=== PATIENT | male | born 1980 | race Caucasian/White ===

== ENCOUNTER 2018-02-20 18:23 | Inpatient (IN) | payer MEDICAID ==
[~2018-02-20] VITALS: Ht 170.2 cm; Wt 54.4 kg
--- NOTE | 2018-02-20 18:46 | NUR ---
PT IS IN ROOM #2A. DR PULLIAM EVALUATED THE PT.
[2018-02-20 18:47] LABS: BASOPHILS % (AUTO) 0.5 % (0.0-2.0); EOSINOPHILS # (AUTO) 0.5 K/uL (0.0-0.7); EOSINOPHILS % (AUTO) 5.5 % (0.0-7.0); HEMOGLOBIN 13.3 g/dL (12.5-16.3); LYMPHOCYTES # (AUTO) 2.4 K/uL (20.0-40.0); LYMPHOCYTES % (AUTO) 27.2 % (20.5-51.5); MEAN CORPUSCULAR HGB CONC 33 g/dL (32.5-36.3); MONOCYTES # (AUTO) 0.8 K/uL (2.0-10.0); MONOCYTES % (AUTO) 9.3 % (0.0-11.0); NEUTROPHILS # (AUTO) 5.2 K/uL (1.8-8.9); NEUTROPHILS % (AUTO) 57.5 % (38.5-71.5); PLATELET COUNT (AUTO) 247 K/uL (152-348); WHITE BLOOD COUNT (AUTO) 8.9 K/uL (3.6-10.2)
[2018-02-20 19:00] LABS: ALANINE AMINOTRANSFERASE 31 U/L (16-63); ALKALINE PHOSPHATASE 105 U/L (50-136); ASPARTATE AMINOTRANSFERASE 23 U/L (15-37); BILIRUBIN,DIRECT 0.1 mg/dL (0.0-0.2); BILIRUBIN,TOTAL 0.4 mg/dL (0.2-1.0); CARBON DIOXIDE 36 mmol/L (21-32); CHLORIDE 96 mmol/L (98-107); CREATININE 0.8 mg/dL (0.6-1.3); POTASSIUM 4.4 mmol/L (3.5-5.1); TOTAL PROTEIN, SERUM 7.6 g/dL (6.4-8.2); UREA NITROGEN, BLOOD 7 mg/dL (7-18)
[2018-02-20 19:09] LABS: ACETAMINOPHEN < 2.0 ug/mL (10-30); GLUCOSE 409 mg/dL (74-106)
[2018-02-20 19:10] LABS: ETHANOL < 3 MG/DL (0-0)
--- NOTE | 2018-02-20 19:13 | NUR ---
REPORT GIVEN TO [employer]RARIAN RN.
[2018-02-20 19:25] LABS: THYROID STIMULATING HORMONE 1.081 mIU/mL (0.358-3.740)
[2018-02-20] MEDS ORDERED: IV NORMAL SALINE 1000 ML BAG IV ONE (19:45)
--- NOTE | 2018-02-20 20:18 | NUR ---
pt deficated in his pants. Pt cleaned, linen changed. Pt able to give urine sample, taken to lab. Pt stated that he used heroine and "crystal" today, informed.
--- NOTE | 2018-02-20 20:20 | NUR ---
Pt difficult to arouse but A&Ox2. Not very cooperative.
[2018-02-20 20:24] LABS: *BILIRUBIN,URIN NEGATIVE (NEGATIVE); *BLOOD, URINE NEGATIVE (NEGATIVE); *COLOR,URINE YELLOW (YELLOW); *KETONES,URINE NEGATIVE (NEGATIVE); *PROTEIN,URINE NEGATIVE (NEGATIVE); *UROBILINOGEN,URINE 0.2 E.U./dl (NORMAL); LEUKOCYTE ESTERASE ,URINE NEGATIVE (NEGATIVE); NITRITE, URINE NEGATIVE (NEGATIVE); PH,URINE 8.5 (5.0-8.0)
[2018-02-20 20:35] LABS: *AMPHETAMINE, URINE POSITIVE (NEGATIVE); *BARBITURATE, URINE NEGATIVE (NEGATIVE); *CANNABINOID, URINE POSITIVE (NEGATIVE); *COCCAINE, URINE NEGATIVE (NEGATIVE); *OPIATE, URINE POSITIVE (NEGATIVE); *PHENCYCLIDINE SCREEN,URINE NEGATIVE (NEGATIVE)
[2018-02-20 20:45] LABS: *CLARITY,URINE HAZY (CLEAR); UGLUCOSE 2+ (NEGATIVE)
[2018-02-20 20:46] LABS: URINE AMORPHOUS PHOSPHATES MODERATE /HPF; WBC,URINE 0-3 /HPF (0-3)
[2018-02-20 20:47] LABS: MUCUS,URINE FEW /LPF (0-FEW); SPERM,URINE FEW /HPF (NONE SEEN)
--- NOTE | 2018-02-20 22:41 | NUR ---
Pt tore off his diaper and deficated on himself again. Cleaned pt again and changed linen.
[2018-02-21] MEDS ORDERED: ONDANSETRON IV *ER 4 MG/2 ML VIAL IV ONE (00:15)
[2018-02-21] MEDS ORDERED: ONDANSETRON 4 MG/2 ML VIAL ONE ×2 (00:28→03:27)
--- NOTE | 2018-02-21 00:29 | NUR ---
pt vomited on floor, MD notified. Accucheck = 336, MD informed.
[2018-02-21] MEDS ORDERED: IV NORMAL SALINE 1000 ML BAG IV ONE (00:30)
[2018-02-21] MEDS ORDERED: METOCLOPRAMIDE HCL 10 MG/2 ML VIAL IV ONE (01:15)
[2018-02-21] MEDS ORDERED: METOCLOPRAMIDE HCL 10 MG/2 ML VIAL ONE (01:19)
--- NOTE | 2018-02-21 01:23 | NUR ---
Pt vomited yellow liquid, MD notified. Admin Reglan per .
--- NOTE | 2018-02-21 03:20 | NUR ---
[facility] WAITING FOR BRIAN JAQUEZ VP OF [employer]PERI[employer]ATEGY TO CALL BACK.
[2018-02-21] MEDS: ONDANSETRON IV *ER 4 MG/2 ML VIAL IV ONE ×2 (03:25→03:26)
--- NOTE | 2018-02-21 03:31 | NUR ---
BRIAN JAQUEZ COLLISION ESTIMATOR SPEAKING WITH DR PULLIAM
--- NOTE | 2018-02-21 03:44 | NUR ---
Called report to [facility].
[2018-02-21] MEDS ORDERED: IV NS 1000 ML 1,000 ML IV PRN (04:13)
[2018-02-21] MEDS ORDERED: DEXTROSE 50% 50 ML DISP.SYRIN IV PRN (04:15)
[2018-02-21] MEDS ORDERED: MAGNESIUM HYDROXIDE 30 ML LIQUID UDC PO PRN (04:15)
[2018-02-21] MEDS ORDERED: Z GUARD REMEDY PASTE 57 GM TUBE TOP PRN (04:15)
[2018-02-21] MEDS ORDERED: ONDANSETRON 4 MG/2 ML VIAL IV PRN (04:15)
[2018-02-21] MEDS ORDERED: ACETAMINOPHEN 325 MG TABLET PO PRN (04:15)
[2018-02-21 04:28] VITALS: BP 128/79
--- NOTE | 2018-02-21 04:30 | NUR ---
RECEIVED PATIENT FROM ER, ADMITTED FOR ACUTE DRUG INTOXICATION AND NEW ONSET DIABETES. PATIENT IS VERY CONFUSED ORIENTED TO SELF AND UNABLE TO FOLLOW DIRECTIONS OR ANSWER ANY QUESTIONS. PATIENT HAD ONE EPISODE OF LARGE EMESIS. ASPIRATION PRECAUTIONS IN PLACE. SAFETY MEASURES IN PLACE, BED ALARM ON, CALL LIGHT LEFT WITHIN PATIENT'S REACH
[2018-02-21] MEDS: BLOOD SUGAR DIAGNOSTIC 1 EACH STRIP VI SCH ×3 (05:03→12:00)
[2018-02-21] MEDS: INSULIN REGULAR, HUMAN 300 UNIT/3 ML VIAL SQ PRN ×2 (05:56→08:06)
[2018-02-21 06:35] LABS: THYROID STIMULATING HORMONE 0.971 mIU/mL (0.358-3.740)
--- NOTE | 2018-02-21 06:45 | NUR ---
PATIENT IS VERY CONFUSED PULLED OUT HIS IV, UNABLE TO FOLLOW DIRECTIONS AND VERY DISORIENTED.
[2018-02-21] MEDS ORDERED: PANTOPRAZOLE SODIUM 40 MG VIAL IV SCH (09:00)
--- NOTE | 2018-02-21 10:00 | NUR ---
PT HAS BEEN SLEEPING AND REFUSES TEACHING AND RESISTS CARE. PT AOX3, UNCOOPERATIVE,NO SIGNS OF RESPIRATORY DISTRESS AND STATES, " I JUST WANT TO SLEEP" CONTINUE TO MONITOR PT.
[2018-02-21 11:36] VITALS: BP 100/71
--- NOTE | 2018-02-21 13:34 | NUR ---
PT VERBALIZES THAT HE WANTS TO LEAVE AMA. PT SIGNED THE AMA FORM AND WAS PROVIDED CLEAN CLOTHES TO WEAR. CONTINUE TO MONITOR PT.
--- NOTE | 2018-02-21 14:06 | NUR ---
PT DISCHARGED AMA, WALKED OUT OF THE UNIT, AND GUIDED BY UNIT STAFF. PT DISCHARGED WITH ALL HIS BELONGINGS, IV REMOVED, ID BAND REMOVED. PT REFUSED D/C PAPERWORK. PT REFUSED TO HAVE PICTURES TAKEN. PT DENIES SI/HI AND CONTRACTS FOR SAFETY INSIDE AND OUTSIDE OF THE HOSPITAL.
[2018-02-21] MEDS ORDERED: DOCUSATE SODIUM 100 MG CAPSULE PO SCH (21:00)
== END 2018-02-21 14:05 | disposition left against medical advice (07) | DRG 816 ==
LOC: ER 18:25 → MED 02-21 03:22
PROVIDERS: ADMIT Registered Nurse; ATTEND Internal Medicine
DX: T40.1X1A Poisoning by heroin, accidental (unintentional), initial encounter (principal); G92 Toxic encephalopathy; E11.65 Type 2 diabetes mellitus with hyperglycemia; F19.188 Other psychoactive substance abuse with other psychoactive substance-induced disorder; R11.10 Vomiting, unspecified; E86.0 Dehydration; Z59.0 Homelessness; M25.78 Osteophyte, vertebrae; F11.10 Opioid abuse, uncomplicated; F13.10 Sedative, hypnotic or anxiolytic abuse, uncomplicated; F15.10 Other stimulant abuse, uncomplicated; Y92.410 Unspecified street and highway as the place of occurrence of the external cause
CPT/HCPCS: 36415; 70030-TC; 70450; 71045; 72125; 80307; 82746; 84443; 85025; 85730; 87086; 93005; A4663; G0480; G0480-TC; J1815; J2405; J2765; J7030